=== PATIENT | male | born 1965 | race Caucasian/White ===

== ENCOUNTER 2019-09-27 08:16 | Day surgery (SDC) | payer OTHER ==
[2019-09-24 10:36] LABS: ABSOLUTE EOSINOPHILS # (AUTO) 0.1 10^3/uL (0.0-0.6); ABSOLUTE LYMPHOCYTES (AUTO) 1.4 10^3/uL (0.5-4.7); ABSOLUTE MONOCYTES (AUTO) 0.6 10^3/uL (0.1-1.4); ABSOLUTE NEUT (AUTO) 5.5 10^3/uL (1.7-8.2); BASOPHILS % (AUTO) 0.6 % (0-2); EOSINOPHILS % (AUTO) 1.4 % (0-6); HEMATOCRIT 41.6 % (37.9-51.0); HEMOGLOBIN 14.3 g/dL (13.5-17.0); LYMPHOCYTES % (AUTO) 18.4 % (13-45); MEAN CORPUSCULAR HEMOGLOBIN 29.5 pg (27.0-33.4); MEAN CORPUSCULAR HGB CONC 34.4 g/dL (32.0-36.0); MEAN CORPUSCULAR VOLUME 86 fl (80-97); MONOCYTES % (AUTO) 7.7 % (3-13); PLATELET COUNT 245 10^3/uL (150-450); RED BLOOD COUNT 4.84 10^6/uL (4.35-5.55); RED CELL DISTRIBUTION WIDTH 13.4 % (11.5-14.0); SEGMENTED NEUTROPHILS % (AUTO) 71.9 % (42-78); TOTAL CELLS COUNTED % (AUTO) 100 %; WHITE BLOOD COUNT 7.6 10^3/uL (4.0-10.5)
[2019-09-24 10:49] LABS: ANION GAP 11 (5-19); BLOOD UREA NITROGEN 9 mg/dL (7-20); CALCIUM 9.4 mg/dL (8.4-10.2); CARBON DIOXIDE 26 mmol/L (22-30); CHLORIDE 102 mmol/L (98-107); GLUCOSE 195 mg/dL (75-110); POTASSIUM 4.3 mmol/L (3.6-5.0)
--- NOTE | 2019-09-24 13:29 | EKG REPORT ---
SEVERITY:- ABNORMAL ECG - SINUS RHYTHM INCOMPLETE RIGHT BUNDLE BRANCH BLOCK : Confirmed by: Marlon Montanez MD 24-Sep-2019 13:28:23
[~2019-09-27 08:16] MED LIST: CEFAZOLIN SODIUM 2 GM in DEXTROSE 5%-WATER 100 ML IV PRN; LACTATED RINGERS 1000 ML IV PRN; LIDOCAINE 0.5% INJ-PF (5 MG/ML) 50 ML SDV SUBCUT PRN
[2019-09-27] MEDS ORDERED: PROPOFOL INJ 200 MG/20 ML VIAL IV ONE ×2 (08:44→10:54)
[2019-09-27] MEDS ORDERED: FENTANYL CITRATE INJ/PF 100 MCG/2 ML AMPUL ONE (08:44)
[2019-09-27] MEDS ORDERED: MIDAZOLAM 2 MG/2 ML INJ ONE (08:44)
[2019-09-27] MEDS ORDERED: METOCLOPRAMIDE HCL INJ/PF 10 MG/2 ML SDV ONE (09:13)
[2019-09-27] MEDS ORDERED: ALBUTEROL SULFATE 0.083% NEB 2.5 MG/3 ML AMPUL NEB ONE (09:19)
[2019-09-27] MEDS ORDERED: BUPIVACAINE HCL 0.25 % INJ/PF (2.5 MG/1 ML) 30 ML VIAL ONE (09:42)
[2019-09-27] MEDS ORDERED: BUPIVACAINE HCL 0.5%-EPI 1:200000 INJ/PF 30 ML VIAL ONE (09:43)
[2019-09-27] MEDS ORDERED: FAMOTIDINE INJ/PF 20 MG/2 ML SDV IV ONE (09:45)
[2019-09-27] MEDS ORDERED: MORPHINE SULFATE 10 MG/ML INJ IV PRN (10:11)
[2019-09-27] MEDS ORDERED: FENTANYL CITRATE INJ/PF 100 MCG/2 ML AMPUL IV PRN ×3 (10:11)
[2019-09-27] MEDS ORDERED: ONDANSETRON HCL INJ/PF 4 MG/2 ML SDV IV PRN (10:11)
[2019-09-27] MEDS ORDERED: OXYCODONE-ACETAMINOPHEN 5-325 MG TABLET PO PRN ×2 (10:11)
[2019-09-27] MEDS ORDERED: MEPERIDINE HCL/PF INJ 25 MG/1 ML DISP.SYRIN IV PRN (10:11)
[2019-09-27] MEDS ORDERED: DIPHENHYDRAMINE HCL 50 MG/ML VIAL IV PRN (10:11)
[2019-09-27] MEDS ORDERED: LIDOCAINE 1%/EPINEPHRINE INJ 20 ML VIAL ONE (10:19)
[2019-09-27] MEDS ORDERED: LIDOCAINE 1%/EPINEPHRINE INJ 20 ML VIAL INJ ONE ×2 (10:23)
--- NOTE | 2019-09-27 10:45 | Operative Report ---
Nonrecallable Operative Report DATE OF SURGERY: 09/27/19 PREOPERATIVE DIAGNOSIS: left neck mass POSTOPERATIVE DIAGNOSIS: left neck mass OPERATION: excision of left neck mass SURGEON: VICTORINO LOVE ANESTHESIA: Moderate Sedation TISSUE REMOVED OR ALTERED: mass left neck COMPLICATIONS: none ESTIMATED BLOOD LOSS: 5cc INTRAOPERATIVE FINDINGS: see note PROCEDURE: Patient was brought to the operating awake alert stable condition placed in the operating table supine position and given IV sedation during the procedure. The left neck was prepped and draped in usual sterile fashion for the procedure. After appropriate timeout and site verification the procedure commenced. The mass in the left neck along the posterior sternocleidomastoid muscle was approximately 4 cm in diameter using a marking pen a the skin was marked in elliptical fashion. After anesthetizing the area of the incision with 1% lidocaine with epinephrine a an elliptical incision was made with a 15 blade dissection was carried down through subcutaneous tissue with either the 15 blade with the Bovie cautery being careful not to injure the spinal accessory nerve. The mass was excised from the subcutaneous tissue with Bovie cautery with the overlying skin. It was sent to pathology. The deep subcu was then reapproximated with interrupted 3-0 Vicryl sutures and the skin was reapproximated interrupted 3-0 nylon suture and a sterile dressing was applied which completed the procedure. Estimated blood loss for the procedure was 5 cc sponge needle counts were correct x2. The patient was then transferred recovery in stable condition no complications
--- NOTE | 2019-09-27 10:47 | Discharge Summary ---
Discharge Summary (SDC) - Discharge Final Diagnosis: Left neck mass Date of Surgery: 09/27/19 Discharge Date: 09/27/19 Condition: Good [facility]errals: [facility] [[facility] - Discharge Activity: Activity As Tolerated - In the ICU and about an Report the Following to Your Physician Immediately: Unusual Bleeding - Needs a follow-up with me in 10 days
[2019-09-27] MEDS ORDERED: ONDANSETRON HCL INJ/PF 4 MG/2 ML SDV ONE (10:55)
[2019-09-27 14:50] VITALS: BP 168/94
== END 2019-09-27 12:40 | disposition home or self-care (01) ==
LOC: OROUT 08:16
PROVIDERS: ATTEND Surgery
DX: R22.1 Localized swelling, mass and lump, neck (principal); E11.9 Type 2 diabetes mellitus without complications; Z79.899 Other long term (current) drug therapy; Z79.84 Long term (current) use of oral hypoglycemic drugs; I10 Essential (primary) hypertension; D64.9 Anemia, unspecified; J45.909 Unspecified asthma, uncomplicated; Z79.51 Long term (current) use of inhaled steroids
CPT/HCPCS: 93005; 36415; 82962; 85025; 80048; 88305 ×2; 93010; 00300; 21552; J2250; J0690; J3010; J3490; J2765; J2405; J7060; J2704; 300